=== PATIENT | male | born 1995 ===

== ENCOUNTER → 2017-02-03 | Outpatient (CLI) | payer OTHER | LOC: BMCIMAGING 16:39 | PROVIDERS: ATTEND Family Medicine | DX: S82.61XA Displaced fracture of lateral malleolus of right fibula, initial encounter for closed fracture (principal) ==

== ENCOUNTER → 2018-05-25 | Outpatient (CLI) | payer BC | LOC: FIMAGING 11:13 | PROVIDERS: ATTEND Family Medicine | DX: S82.121A Displaced fracture of lateral condyle of right tibia, initial encounter for closed fracture (principal) ==